=== PATIENT | male | born 1950 | race Hispanic/Latino ===

== ENCOUNTER 2022-07-31 06:35 | Day surgery (SDC) | payer OTHER ==
[2022-07-29 13:21] LABS: BASOPHILS % (AUTO) 1.3 % (0.0-5.0); EOSINOPHILS % (AUTO) 1.2 % (0.0-8.0); HEMATOCRIT 39.4 % (42-54); LYMPHOCYTES % (AUTO) 30.8 % (21.0-51.0); MEAN CORPUSCULAR HEMOGLOBIN 30.1 pg (27.0-33.0); MEAN CORPUSCULAR VOLUME 94.3 fL (79-99); MONOCYTES % (AUTO) 8.1 % (3.0-13.0); NEUTROPHILS % (AUTO) 58.5 % (40.0-77.0); PLATELET COUNT (AUTO) 225 K/uL (130-400); RED BLOOD CELL COUNT(AUTO) 4.18 MIL/uL (4.50-6.20); WHITE BLOOD COUNT (AUTO) 6.8 K/uL (4.8-10.8)
[2022-07-29 13:35] LABS: CREATININE 1.1 mg/dL (0.5-1.5); POTASSIUM 4.4 mmol/L (3.5-5.1)
[2022-07-29 13:38] LABS: PROTHROMBIN TIME 10.9 SEC (9.6-11.6)
[2022-07-29 13:39] LABS: PARTIAL THROMBOPLASTIN TIME 27.9 SEC (26.3-35.5)
[2022-07-29 13:40] VITALS: BP 134/82
[~2022-07-31] VITALS: Ht 172.7 cm; Wt 82.5 kg
[2022-07-31] VITALS (16 sets, daily range): BP systolic 111–124; BP diastolic 61–74
[~2022-07-31 06:35] MED LIST: ASPI-449 PO; ATOR20TA65 PO; LISI5TAB21 PO; METF-444 PO
[2022-07-31] MEDS ORDERED: 0.9%NACL 1000ML 1,000 ML IV ONE ×2 (07:00→07:49)
[2022-07-31] MEDS ORDERED: LIDOCAINE HCL 2% VISCOUS 15 ML UDCUP ONE (08:07)
[2022-07-31] MEDS ORDERED: FENTANYL CITRATE PF 50 MCG/1 ML 2ML VIAL ONE (08:18)
[2022-07-31] MEDS ORDERED: MIDAZOLAM HCL 1 MG/ML 2ML VIAL ONE (08:18)
== END 2022-07-31 09:35 | disposition home or self-care (01) ==
LOC: DAH 06:35
PROVIDERS: ATTEND Internal Medicine
DX: I31.8 Other specified diseases of pericardium (principal); I37.1 Nonrheumatic pulmonary valve insufficiency; I11.9 Hypertensive heart disease without heart failure; E11.9 Type 2 diabetes mellitus without complications; Z79.82 Long term (current) use of aspirin; Z79.899 Other long term (current) drug therapy; Z79.01 Long term (current) use of anticoagulants
CPT/HCPCS: 80048; 85025; 85610; 85730; 36415; 93005; 93312; 82948; 93325; J3010; J7030; J2250; A4215; A4222; A4221; A4663; A4216; A4606; A4223 ×3; 99152